=== PATIENT | female | born 1930 | race Caucasian/White ===

== ENCOUNTER 2018-12-25 11:45 | Inpatient (IN) | payer MEDICARE, BC ==
[2018-12-25] VITALS (89 sets, daily range): BP systolic 133–170; BP diastolic 66–101; PULSE 72–91; TEMP 97.8–98.5; O2SAT 89–100
[~2018-12-25] VITALS: Ht 162.6 cm; Wt 64.8 kg
[~2018-12-25 11:45] MED LIST: LISINOPRIL; PREMARIN0.625 MG PO
--- NOTE | 2018-12-25 12:00 | NUR ---
PT ARRIVED VIA EMS WITH BLOOD INFUSING. PT A&O X4. DENIES PAIN.
[2018-12-25 14:09] LABS: INR 1.5 (0.8-3.0); PROTHROMBIN TIME 17.6 SECONDS (9.7-12.8)
[2018-12-25 14:13] LABS: BASO % 0.4 % (0.0-2.0); GRAN # 4.8 (1.4-6.5); GRAN % 72.1 % (42.2-75.2); LYMPH # 1.2 (1.2-3.4); LYMPH % 17.9 % (20.0-51.0); MEAN CELL VOLUME 74 fl (80.0-100.0); MEAN CORPUSCULAR HGB CONC 29 g/dl (33.0-37.0); MEAN PLATELET VOLUME 11.7 fl (7.4-10.4); MONO # 0.6 (0.1-0.6); MONO % 8.7 % (1.7-9.3); PLATELET COUNT 220 K/mm3 (130-400); RED BLOOD COUNT 2.92 M/mm3 (4.10-5.30); REDCELL DISTRIBUTION WIDTH-CV 24.7 % (11.5-14.5)
[2018-12-25 14:14] LABS: HEMATOCRIT 21.5 % (37.0-47.0); HEMOGLOBIN 6.3 g/dl (12.5-16.0); MEAN CORPUSCULAR HEMOGLOBIN 22 pg (27.0-31.0)
[2018-12-25] MEDS ORDERED: ASPIRIN 32325 MG/TAB PO (16:02)
[2018-12-25] MEDS ORDERED: CRESTOR 10MG10 MG PO (16:03)
[2018-12-25] MEDS ORDERED: LASIX 20MG TABL20 MG PO (16:04)
[2018-12-25] MEDS ORDERED: NITROSTAT0.4 MG/TAB SL (16:05)
[2018-12-25] MEDS ORDERED: LOPRESSOR 225 MG/TAB PO (16:05)
[2018-12-25] MEDS ORDERED: PRIL40 PO (16:07)
[2018-12-25] MEDS ORDERED: PLAVIX 75MG TAB75 MG PO (16:08)
[2018-12-25] MEDS ORDERED: K-DUR20 MEQ (16:12)
--- NOTE | 2018-12-25 18:17 | NUR ---
PT TAKEN TO 0.5L NC. PT SP02 100%.
--- NOTE | 2018-12-25 19:00 | NUR ---
BEDSIDE REPORT GIVEN TO LARISA BRIDGES.
--- NOTE | 2018-12-25 19:05 | NUR ---
Received report from LARISA Benitez.
[2018-12-26] VITALS (256 sets, daily range): BP systolic 142–152; BP diastolic 76–85; PULSE 77–82; TEMP 97.3–98.4; O2SAT 35–100
[2018-12-26 00:27] LABS: BASO # 0.1 (0.0-0.2); BASO % 0.6 % (0.0-2.0); EOS % 0.2 % (0-4.0); GRAN # 6.2 (1.4-6.5); GRAN % 70.4 % (42.2-75.2); HEMATOCRIT 23.9 % (37.0-47.0); HEMOGLOBIN 7.6 g/dl (12.5-16.0); LYMPH # 1.5 (1.2-3.4); LYMPH % 17.6 % (20.0-51.0); MEAN CELL VOLUME 75 fl (80.0-100.0); MEAN CORPUSCULAR HEMOGLOBIN 24 pg (27.0-31.0); MEAN CORPUSCULAR HGB CONC 32 g/dl (33.0-37.0); MONO # 0.9 (0.1-0.6); MONO % 10.3 % (1.7-9.3); PLATELET COUNT 169 K/mm3 (130-400); RED BLOOD COUNT 3.18 M/mm3 (4.10-5.30); REDCELL DISTRIBUTION WIDTH-CV 23.2 % (11.5-14.5)
[2018-12-26 05:17] LABS: BASO % 0.5 % (0.0-2.0); EOS % 0.5 % (0-4.0); GRAN # 6.4 (1.4-6.5); LYMPH # 1.5 (1.2-3.4); LYMPH % 16.8 % (20.0-51.0); MEAN CELL VOLUME 76 fl (80.0-100.0); MEAN CORPUSCULAR HGB CONC 31 g/dl (33.0-37.0); MONO # 0.8 (0.1-0.6); MONO % 9.1 % (1.7-9.3); PLATELET COUNT 165 K/mm3 (130-400); RED BLOOD COUNT 3.37 M/mm3 (4.10-5.30); REDCELL DISTRIBUTION WIDTH-CV 22.9 % (11.5-14.5)
[2018-12-26 05:18] LABS: HEMATOCRIT 25.7 % (37.0-47.0); MEAN CORPUSCULAR HEMOGLOBIN 24 pg (27.0-31.0)
[2018-12-26 05:23] LABS: INR 1.3 (0.8-3.0); PROTHROMBIN TIME 15.4 SECONDS (9.7-12.8)
[2018-12-26 06:11] LABS: BILIRUBIN,TOTAL 2.3 mg/dL (0.0-1.0); CALCIUM 8.6 mg/dL (8.4-10.2); CREATININE, serum 0.76 (0.52-1.25); POTASSIUM 3.6 mmol/L (3.4-5.0); TOTAL PROTEIN 5.8 gm/dL (6.4-8.2)
--- NOTE | 2018-12-26 07:00 | NUR ---
Alfredo recieved from LARISA Silverman. Patient participates and all questions asked are answered. Needs denied at this time. MIVF rate verified. Care assumed.
--- NOTE | 2018-12-26 07:31 | NUR ---
Report given to LARISA Arriola.
--- NOTE | 2018-12-26 09:39 | NUR ---
Dr. Pitts rounds on patient at this time.
[2018-12-26] MEDS ORDERED: PRIL40 PO (11:18)
--- NOTE | 2018-12-26 14:15 | NUR ---
Patient INT IV discontinued and she is assisted to dress in street clothing. DC education printed and will await arrival of patient daughter to complete. Patient detached from monitors and awaiting ride to DC home.
--- NOTE | 2018-12-26 15:25 | NUR ---
Patient discharged education provided to patient and daughter who verbalize understanding. Patient transported to private vehicle via and care completed at this time.
--- NOTE | 2018-12-28 09:22 | NUR ---
tea tree farm worker attempted to contact patient, however, no answer. Worker contacted patient's daughter, Padma Noriega #[phone] and inquired of patient's status. Padma states patient is doing well and was able to sleep good and do laundry this weekend. Patient does not have any services at this time and Padma does not feel they are needed. Padma states they are aware of home health services as patient has seen them previously. No concerns noted at this time. Patient lives alone in [place], [place].
== END 2018-12-26 15:25 | disposition home or self-care (01) | DRG 378 ==
LOC: IMCU 11:45
PROVIDERS: Hospitalist; Internal Medicine Gastroenterology; ADMIT Student in an Organized Health Care Education/Training Program
PROC: 0DB78ZX Excision of Stomach, Pylorus, Via Natural or Artificial Opening Endoscopic, Diagnostic (ICD-10-PCS; 2018-12-25)
PROC: 0W3P8ZZ Control Bleeding in Gastrointestinal Tract, Via Natural or Artificial Opening Endoscopic (ICD-10-PCS; principal; 2018-12-25 13:30)
DX: K26.4 Chronic or unspecified duodenal ulcer with hemorrhage (principal); D62 Acute posthemorrhagic anemia; I50.32 Chronic diastolic (congestive) heart failure; K21.0 Gastro-esophageal reflux disease with esophagitis; I25.10 Atherosclerotic heart disease of native coronary artery without angina pectoris; Z95.5 Presence of coronary angioplasty implant and graft; Z79.01 Long term (current) use of anticoagulants; Z95.0 Presence of cardiac pacemaker; I11.0 Hypertensive heart disease with heart failure; E78.5 Hyperlipidemia, unspecified; E11.9 Type 2 diabetes mellitus without complications; Z87.891 Personal history of nicotine dependence; Z88.8 Allergy status to other drugs, medicaments and biological substances; G43.909 Migraine, unspecified, not intractable, without status migrainosus
CPT/HCPCS: 99223-AI; 99239; C9113; J2250; J3010; J7030; P9016

== ENCOUNTER 2019-03-15 11:22 | Inpatient (IN) | payer MEDICARE, BC ==
[2019-03-15] VITALS (10 sets, daily range): BP systolic 124–152; BP diastolic 52–76; PULSE 56–88; TEMP 97.9–98.7
[~2019-03-15] VITALS: Ht 162.6 cm; Wt 65.2 kg
[~2019-03-15 11:22] MED LIST changes: +ASPIRIN 32325 MG/TAB PO; +CRESTOR 10MG10 MG PO; +K-DUR20 MEQ PO; +LASIX 20MG TABL20 MG PO; +LOPRESSOR 225 MG/TAB PO; +NITROSTAT0.4 MG/TAB SL; +PLAVIX 75MG TAB75 MG PO; +PRIL40 PO
[2019-03-15] MEDS ORDERED: ASPIRIN 81M81 MG/TA2 PO (13:30)
[2019-03-15] MEDS ORDERED: PLAVIX 75MG TAB75 MG PO (13:35)
[2019-03-15] MEDS ORDERED: PRIL40 PO (13:36)
--- NOTE | 2019-03-15 14:00 | NUR ---
Patient alert and oriented, answers questions appropriately. See asssesment. Abdomen soft, non tender, non distended. Bowel sounds active x4 quads. +Flatus. Last bowel movement this a.m. No c/o abdominal pain or pressure. Requests food. Dr Tyler in to see patient. QUEENIE Murry with GI in to see patient. No c/o at this time.
[2019-03-15 15:01] LABS: BILIRUBIN,TOTAL 1.9 mg/dL (0.0-1.0); CALCIUM 8.6 mg/dL (8.4-10.2); CREATININE, serum 0.87 (0.52-1.25); POTASSIUM 3.7 mmol/L (3.4-5.0); TOTAL PROTEIN 5.7 gm/dL (6.4-8.2)
[2019-03-15 15:05] LABS: BASO # 0.1 (0.0-0.2); BASO % 0.9 % (0.0-2.0); EOS # 0.1 (0.0-0.7); EOS % 1.2 % (0-4.0); GRAN # 3.8 (1.4-6.5); GRAN % 64.4 % (42.2-75.2); INR 1.2 (0.8-3.0); LYMPH # 1.4 (1.2-3.4); LYMPH % 23.9 % (20.0-51.0); MEAN CELL VOLUME 76 fl (80.0-100.0); MEAN CORPUSCULAR HGB CONC 30 g/dl (33.0-37.0); MONO # 0.5 (0.1-0.6); MONO % 8.9 % (1.7-9.3); PLATELET COUNT 158 K/mm3 (130-400); REDCELL DISTRIBUTION WIDTH-CV 25.1 % (11.5-14.5)
[2019-03-15 15:09] LABS: HEMATOCRIT 23.6 % (37.0-47.0); HEMOGLOBIN 7.1 g/dl (12.5-16.0); MEAN CORPUSCULAR HEMOGLOBIN 23 pg (27.0-31.0)
[2019-03-15 17:23] LABS: PH 5 (5-8); SQUAMOUS EPITHELIAL None Seen /hpf; URINE APPEARANCE Clear; URINE BACTERIA Rare /hpf; URINE BILIRUBIN Negative (NEGATIVE); URINE BLOOD Negative (NEGATIVE); URINE COLOR Yellow; URINE GLUCOSE Negative (NEGATIVE); URINE KETONE Trace (NEGATIVE); URINE LEUKOCYTE ESTERASE 1+ (NEGATIVE); URINE NITRATE Negative (NEGATIVE); URINE PROTEIN(semi-quant) Negative (NEGATIVE); URINE UROBILINOGEN Negative (NEGATIVE)
--- NOTE | 2019-03-15 20:00 | NUR ---
Report received. Assumed care for hotel night auditor. Assessment complete. VS stable-noted to have irregular heart rate-pulse 48 apically. Denies pain/nausea/shortness of breath. Plan of care discussed for EGD tomorrow-blood transfusion tonight. Verbalizes understanding. Denies questions or concerns. Up to bathroom with small amount of black liquid stool. Assisted back to bed. Lab to draw H/H and Type and screen. Will monitor.
[2019-03-15 20:09] LABS: HEMATOCRIT 23.3 % (37.0-47.0); HEMOGLOBIN 7.1 g/dl (12.5-16.0)
[2019-03-15 22:02] LABS: COLLECTION METHOD CLEAN CATCH
[2019-03-16] VITALS (13 sets, daily range): BP systolic 115–152; BP diastolic 48–73; PULSE 45–91; TEMP 97.8–98.6
--- NOTE | 2019-03-16 00:14 | NUR ---
cigarette roller hospitalist contacted to clarify blood transfusion order as multiple orders have been placed at the same time. States one unit-recheck H/H in AM.
--- NOTE | 2019-03-16 06:59 | NUR ---
Bedside report to LARISA Waddell
[2019-03-16 07:53] LABS: BASO % 0.4 % (0.0-2.0); EOS # 0.1 (0.0-0.7); EOS % 1.5 % (0-4.0); GRAN # 6.7 (1.4-6.5); GRAN % 79.7 % (42.2-75.2); LYMPH % 12.1 % (20.0-51.0); MEAN CELL VOLUME 78 fl (80.0-100.0); MEAN CORPUSCULAR HGB CONC 30 g/dl (33.0-37.0); MEAN PLATELET VOLUME 11.1 fl (7.4-10.4); MONO # 0.5 (0.1-0.6); MONO % 5.8 % (1.7-9.3); PLATELET COUNT 154 K/mm3 (130-400); RED BLOOD COUNT 3.33 M/mm3 (4.10-5.30); REDCELL DISTRIBUTION WIDTH-CV 24.3 % (11.5-14.5)
[2019-03-16 07:56] LABS: HEMOGLOBIN 7.9 g/dl (12.5-16.0); MEAN CORPUSCULAR HEMOGLOBIN 24 pg (27.0-31.0)
--- NOTE | 2019-03-16 07:58 | NUR ---
Patient in bathroom and would like to return to bed. Had large dark black soft stool. Gati steady. Returns to bed. Denies pain. Patient is aware that she is NPO at this time for procedure this afternoon. Denies further needs.
[2019-03-16 08:02] LABS: ALBUMIN 2.9 gm/dL (3.5-5.0); BILIRUBIN,TOTAL 1.2 mg/dL (0.0-1.0); CALCIUM 8.2 mg/dL (8.4-10.2); CREATININE, serum 0.67 (0.52-1.25); POTASSIUM 3.5 mmol/L (3.4-5.0); TOTAL PROTEIN 5.4 gm/dL (6.4-8.2)
--- NOTE | 2019-03-16 09:25 | NUR ---
SW met with the patient to discuss discharge plan. The patient lives alone in [place]. She states that her daughter, Padma Estrada (ph#[phone]), lives in [place] and works at [employer] [facility] [employer]. She reports independence with ADLs and has a walker. The patient's PCP is Dr. Gareth Lyle and she receives her medications at [facility] She reports no difficulties obtaining her meds. The patient does not have advanced directives in EMR, but she states that she does have them completed and that [facility] should have a copy. She states that her daughter (Padma) and son (Barry Treviño) are her DPOA-HC. SW contacted [facility] Medical Records and requested a copy. The patient plans to return home upon discharge. SW discussed home health services. The patient states that she is not interested in home health at this time. No additional needs at this time, but SW to continue to follow as needed.
--- NOTE | 2019-03-16 13:35 | NUR ---
Up to bathroom. Gait slow but steady. Patient connected to gravity tubing as surgery will be up to get patient to take her for EGD. Patient denies pain. Explains that she is feeling "ansy". Reassurance provided.
--- NOTE | 2019-03-16 14:13 | NUR ---
Patient to EGD via OR staff via bed.
--- NOTE | 2019-03-16 15:52 | NUR ---
Patient lying in bed with eyes open. Alert and oriented x4. Denies pain. Family at bedside. Denies concerns or needs.
[2019-03-16 17:23] LABS: HEMATOCRIT 28.4 % (37.0-47.0); HEMOGLOBIN 8.5 g/dl (12.5-16.0)
--- NOTE | 2019-03-16 17:46 | NUR ---
Lying in bed with eyes closed. Opens eyes when name called out. Denies pain. Is able to drink water without difficulty. Will obtain clear liquid tray for the patient.
--- NOTE | 2019-03-16 22:12 | NUR ---
CALLED BY TELE NURSE THAT PATIENT WAS HAVING ST ELEVATIONS. STAT EKG ORDERED. VSS. PATIENT DENIES CHEST PAIN AND IS RESTING COMFORTABLY IN BED. EKG RESULTS CALLED TO [facility], STATES TO MONITOR, NO CHANGES AT THIS TIME.
--- NOTE | 2019-03-17 02:12 | NUR ---
PATIENT DOING WELL TONIGHT. ALERT AND ORIENTED, APPEARS DROWSY BUT AWAKENS TO SOUND. ORDONEZ DRAINING CLEAR YELLOW URINE. NS INFUSING AT 100 ML/HR TO R AC IV. HAD MEDIUM TO LARGE BLACK COFFEE GROUND STOOL. TOOK SCHEDULED MEDICATIONS WITHOUT DIFFICULTY. NO FURTHER NEEDS AT THIS TIME. WILL CONTINUE TO MONITOR.
[2019-03-17 04:00] VITALS: BP 146/70; PULSE 90; TEMP 97.7
[2019-03-17 07:09] VITALS: BP 144/66; PULSE 95; TEMP 98.4
[2019-03-17 07:10] LABS: BILIRUBIN,TOTAL 1.3 mg/dL (0.0-1.0); CALCIUM 8.3 mg/dL (8.4-10.2); CREATININE, serum 0.64 (0.52-1.25); TOTAL PROTEIN 5.7 gm/dL (6.4-8.2)
[2019-03-17 07:14] LABS: BASO % 0.5 % (0.0-2.0); EOS # 0.3 (0.0-0.7); EOS % 4.2 % (0-4.0); GRAN # 4.7 (1.4-6.5); GRAN % 71.6 % (42.2-75.2); HEMOGLOBIN 8.2 g/dl (12.5-16.0); LYMPH % 14.6 % (20.0-51.0); MEAN CELL VOLUME 80 fl (80.0-100.0); MEAN CORPUSCULAR HEMOGLOBIN 24 pg (27.0-31.0); MEAN CORPUSCULAR HGB CONC 30 g/dl (33.0-37.0); MONO # 0.6 (0.1-0.6); MONO % 8.8 % (1.7-9.3); PLATELET COUNT 158 K/mm3 (130-400); RED BLOOD COUNT 3.37 M/mm3 (4.10-5.30); REDCELL DISTRIBUTION WIDTH-CV 25.6 % (11.5-14.5)
[2019-03-17 12:00] VITALS: BP 126/59; PULSE 88; TEMP 98
[2019-03-17 15:53] VITALS: BP 148/68; PULSE 84; TEMP 98
--- NOTE | 2019-03-17 17:45 | NUR ---
Patient sitting up in the chair. She has done well today. Ambulated halls with therapy. Rosales Dc today & she is voiding well, no difficultys. Patient has tolerated mech soft diet, no complaints of pain. Ivf per orders, k+ replaced per orders. She is in good spirits, hopful for discharge home tmrw
[2019-03-17 20:00] VITALS: BP 150/64; PULSE 95; TEMP 97.8
--- NOTE | 2019-03-17 23:01 | NUR ---
Pt doing very well. Alert and oriented with VSS. ambulatory in room. has voided and had bm, no issues with this. fluids running to right forearm. eating well. denies pain. states she feels good. potassium was normal this am after recheck. denies needs at this time. call light within reach, will continue to monitr
[2019-03-17 23:49] VITALS: BP 134/65; PULSE 86; TEMP 97.8
--- NOTE | 2019-03-18 02:10 | NUR ---
Pt doing well. Sleeping in bed comfortably. Call light within reach, will continue to monitor
[2019-03-18 04:00] VITALS: BP 136/78; PULSE 82; TEMP 97.6
[2019-03-18 07:06] LABS: MEAN CELL VOLUME 80 fl (80.0-100.0); MEAN CORPUSCULAR HGB CONC 30 g/dl (33.0-37.0); MEAN PLATELET VOLUME 10.7 fl (7.4-10.4); PLATELET COUNT 172 K/mm3 (130-400); RED BLOOD COUNT 3.42 M/mm3 (4.10-5.30); REDCELL DISTRIBUTION WIDTH-CV 26.4 % (11.5-14.5)
[2019-03-18 07:07] LABS: HEMATOCRIT 27.5 % (37.0-47.0); HEMOGLOBIN 8.1 g/dl (12.5-16.0); MEAN CORPUSCULAR HEMOGLOBIN 24 pg (27.0-31.0)
[2019-03-18 07:24] LABS: CALCIUM 8.6 mg/dL (8.4-10.2); CREATININE, serum 0.71 (0.52-1.25); MAGNESIUM 1.8 mg/dL (1.6-2.3); POTASSIUM 3.9 mmol/L (3.4-5.0)
[2019-03-18 08:16] VITALS: BP 132/57; PULSE 46; TEMP 98.2
[2019-03-18 08:20] LABS: GRAN % 65.6 % (42.2-75.2)
[2019-03-18 08:21] LABS: BASO % 0.6 % (0.0-2.0); EOS # 0.4 (0.0-0.7); EOS % 6.2 % (0-4.0); GRAN # 4.4 (1.4-6.5); LYMPH # 1.2 (1.2-3.4); LYMPH % 18.3 % (20.0-51.0); MONO # 0.6 (0.1-0.6); MONO % 9.2 % (1.7-9.3)
--- NOTE | 2019-03-18 10:15 | NUR ---
Patient alert and oriented, answers questions appropriately. See assessment. No c/o abdominal pain or pressure. No c/o bloody stools. No other c/o at this time.
--- NOTE | 2019-03-18 10:21 | NUR ---
The patient is to discharge back home today, 03/18. SW met with the patient and presented and explained the IM form. The patient verbalized understanding, signed, and she was provided a copy. She did not have any other questions or concerns for SW. No additional needs at this time.
[2019-03-18 13:03] VITALS: BP 148/57; PULSE 45; TEMP 98
--- NOTE | 2019-03-18 14:07 | NUR ---
Discharge instructions reviewed with patient and daughter, verbalized understanding. Discharged via wheelchair to auto/home with daughter at 1355.
== END 2019-03-18 13:55 | disposition home or self-care (01) | DRG 378 ==
LOC: SURG 11:22
PROVIDERS: Internal Medicine Gastroenterology; Physician Assistant; ADMIT Student in an Organized Health Care Education/Training Program
PROC: 0W3P8ZZ Control Bleeding in Gastrointestinal Tract, Via Natural or Artificial Opening Endoscopic (ICD-10-PCS; principal; 2019-03-16 14:45)
DX: K27.4 Chronic or unspecified peptic ulcer, site unspecified, with hemorrhage (principal); D62 Acute posthemorrhagic anemia; K57.92 Diverticulitis of intestine, part unspecified, without perforation or abscess without bleeding; I50.32 Chronic diastolic (congestive) heart failure; I25.10 Atherosclerotic heart disease of native coronary artery without angina pectoris; I11.0 Hypertensive heart disease with heart failure; E78.5 Hyperlipidemia, unspecified; K21.0 Gastro-esophageal reflux disease with esophagitis; E87.6 Hypokalemia; E80.6 Other disorders of bilirubin metabolism; Z90.710 Acquired absence of both cervix and uterus; Z95.818 Presence of other cardiac implants and grafts; I25.2 Old myocardial infarction; Z95.0 Presence of cardiac pacemaker; Z87.891 Personal history of nicotine dependence
CPT/HCPCS: 99222-AI; 99232-AI; 99239; A4216; C9113; J0696; J2250; J3010; J3480; J7030; P9016